=== PATIENT | female | born 1955 | race Asian ===

== ENCOUNTER 2017-10-28 10:44 | Emergency (ER) | payer OTHER ==
[~2017-10-28] VITALS: Ht 165.1 cm; Wt 54.4 kg
[2017-10-28 12:20] LABS: PLATELET COUNT 393 K/uL (152-353)
[2017-10-28 12:28] LABS: POTASSIUM 4.2 mmol/L (3.6-5.2)
[2017-10-28 15:55] VITALS: BP 150/90; TEMP 97.5
== END 2017-10-28 15:55 | disposition home or self-care (01) ==
LOC: ED 10:44
PROVIDERS: Family Medicine
DX: S00.83XA Contusion of other part of head, initial encounter (principal); W19.XXXA Unspecified fall, initial encounter; Y93.89 Activity, other specified; Y92.89 Other specified places as the place of occurrence of the external cause; Y99.8 Other external cause status; R42 Dizziness and giddiness; J01.80 Other acute sinusitis
CPT/HCPCS: 36415; 80053; 81000; 85027; 85610; 99283